=== PATIENT | female | born 1985 | race African-American/Black ===

== ENCOUNTER 2016-12-11 22:16 | Emergency (ER) | payer MEDICAID, OTHER ==
[~2016-12-11] VITALS: Ht 160 cm; Wt 82.5 kg
[~2016-12-11 22:16] MED LIST: CLIN1CAP6 PO; GUMMY VITAMINS CHEW
[2016-12-11 22:20] VITALS: BP 128/79; PULSE 97; RESP 18; TEMP 98.4; O2SAT 100
--- NOTE | 2016-12-11 22:28 | PD ---
HPI Chief Complaint: Skin Problem Time Seen by Provider: 22:24 Travel History International Travel<30 days: No Contact w/Intl Traveler<30days: No Traveled to known affect area: No History of Present Illness HPI 31-year-old Afro[place] female coming in with a lump under the left axilla for the past 4 days. Patient denies fever, chills, or other symptoms. Patient has no history of MRSA in the past. Patient has no history of drainable abscesses in the past. Patient has had small ingrown hairs in the past but nothing like this. Pain is 6/10. No known drug allergies. PFSH Past Medical History Asthma: No Autoimmune Disease: No Blood Disorders: No Diminished Hearing: No Immunizations Current: Yes ?: Not : 5 Para: 2 Miscarriage: 2 Past Surgical History Other Surgery: No Social History Alcohol Use: No Tobacco Use: No Substance Use: No Allergies-Medications (Allergen,Severity, Reaction): Coded Allergies: No Known Allergies (Verified , 12/11/16) Reported Meds & Prescriptions Reported Meds & Active Scripts Active No Active Prescriptions or Reported Medications Review of Systems Except as stated in HPI: all other systems reviewed are Neg General / Constitutional: No: Fever Eyes: No: Visual changes HENT: No: Headaches Cardiovascular: No: Chest Pain or Discomfort Respiratory: No: Shortness of Breath Gastrointestinal: No: Abdominal Pain Genitourinary: No: Dysuria Musculoskeletal: No: Pain Skin: Positive Lumps (see history present illness.), Positive Lesions (see history present illness.), No Rash Neurologic: No: Weakness Psychiatric: No: Depression Endocrine: No: Polydipsia Hematologic/Lymphatic: No: Easy Bruising Physical Exam Narrative GENERAL: She appears in mild distress. SKIN: Warm and dry. Normal color. Normal turgor. Patient has an indurated tender swollen area under the left axilla without obvious pointing or abscess formation. No lymphangitis or streaking. No drainage. HEAD: Atraumatic. Normocephalic. EYES: Pupils equal and round. No scleral icterus. No injection or drainage. ENT: No nasal bleeding or discharge. Mucous membranes pink and moist. Pharynx is normal. No significant lymphadenopathy. NECK: Trachea midline. Neck is supple nontender without lymphadenopathy. CARDIOVASCULAR: Regular rate and rhythm. RESPIRATORY: No accessory muscle use. Clear to auscultation. Breath sounds equal bilaterally. MUSCULOSKELETAL: Extremities without clubbing, cyanosis, or edema. No obvious deformities. NEUROLOGICAL: Awake and alert. No obvious cranial nerve deficits. Motor grossly within normal limits. Five out of 5 muscle strength in the arms and legs. Normal speech. PSYCHIATRIC: Appropriate mood and affect; insight and judgment normal. Data Data Last Documented VS Vital Signs Date Time Temp Pulse Resp B/P Pulse Ox O2 Delivery O2 Flow Rate FiO2 12/11/16 22:20 98.4 97 18 128/79 100 Orders Sulfamet-Trimeth Ds 800-160 Mg (Bactrim (12/11/16 22:30) Cephalexin (Keflex) (12/11/16 22:30) Ibuprofen (Motrin) (12/11/16 22:30) [facility] Medical Decision Making Medical Screen Exam Complete: Yes Emergency Medical Condition: Yes Differential Diagnosis Cellulitis. Lymphangitis. Early abscess. Possible MRSA. Narrative Course Patient is medically stable at time of exam. Lesion not felt to be worthy of I&D at this time. Patient is given Bactrim DS 1 by mouth now. Patient is given Keflex 500 mg by mouth now. She is given 800 mg by mouth now. Patient will be continued on Bactrim DS twice a day 7 days. Patient also take Keflex 500 mg 3 times a day 7 days. She is given a prescription for 800 mg ibuprofen 3 times daily with food #30. Patient can also take extra strength Tylenol as needed for pain. Recommend hot compresses to the area frequently through the day follow-up if symptoms do not improve or worsen. Diagnosis Primary Impression: Cellulitis of axilla, left Referrals: Primary Care Physician Patient Instructions: Cellulitis (ED), General Instructions Additional Instructions: Lesion not felt to be worthy of I&D at this time. Patient is given Bactrim DS 1 by mouth now. Patient is given Keflex 500 mg by mouth now. She is given 800 mg by mouth now. Patient will be continued on Bactrim DS twice a day 7 days. Patient also take Keflex 500 mg 3 times a day 7 days. She is given a prescription for 800 mg ibuprofen 3 times daily with food #30. Patient can also take extra strength Tylenol as needed for pain. Recommend hot compresses to the area frequently through the day follow-up if symptoms do not improve or worsen. Med/Other Pt SpecificInfo: Prescription(s) given Scripts Cephalexin (Keflex)500 Mg [id number] Mg PO Q8H #21 CAP Prov:Jeannette Marina DO 12/11/16 Ibuprofen 800 Mg [id number] Mg PO Q8H PRN (Pain/Inflammation) #30 TAB Prov:Jeannette Marina DO 12/11/16 Sulfamethoxazole-Trimethoprim (Bactrim DS)800-160 Mg Tab1 Tab PO BID #14 TAB Prov:Jeannette Marina DO 12/11/16 Disposition: 01 DISCHARGE HOME Condition: Stable Julio Barboza Dec 11, 2016 22:28
[2016-12-11] MEDS ORDERED: IBUPROFEN 800 MG TAB PO ONE (22:30)
[2016-12-11] MEDS ORDERED: SULFAMETHOXAZOLE-TRIMETHOPRIM DS 800-160 MG TAB PO ONE (22:30)
[2016-12-11] MEDS ORDERED: CEPHALEXIN MONOHYDRATE 500 MG CAP PO ONE (22:30)
[2016-12-11] MEDS ORDERED: BACT800T5 PO (22:35)
[2016-12-11] MEDS ORDERED: IBUP800T23 PO (22:35)
[2016-12-11] MEDS ORDERED: CEPH-460 PO (22:35)
== END 2016-12-11 22:45 | disposition home or self-care (01) ==
LOC: PHEFT 22:16
DX: L03.112 Cellulitis of left axilla (principal)
CPT/HCPCS: 99282